=== PATIENT | female | born 1935 | race African-American/Black ===

== ENCOUNTER → 2016-05-30 | Outpatient (CLI) | payer MEDICARE, BC ==
--- NOTE | ~2016-05-30 | TH ---
Unit #: [id number] #: [id number] Patient: DOUGLAS CEDILLO [id number] [address] [place], [place] [address] [id number] O MR#: [id number] NAME: DOUGLAS CEDILLO : 1935 SEX: F STUDY DATE/TIME: 05/30/2016 UNIT: [facility] ROOM: STUDY DESCRIPTION: Attending Physician: Bharat Contreras M.D. Referring Physician: Bharat Contreras M.D. Primary Care Physician: Becki Wade M.D. CARDIOLOGY REPORT EXAM Lexiscan Cardiolite stress test, nuclear portion. PROCEDURE Using technetium 99m labeled Cardiolite, rest and stress SPECT images were obtained. Multiple SPECT images were obtained in various views including horizontal and vertical long axis and short axis views of the left ventricle. Images were obtained by gated SPECT method. The patient was administered 11.15 mCi of Cardiolite at rest. The patient was administered 34.3 mCi of Cardiolite after Lexiscan infusion was completed. On the stress images, there is a small area of mild decreased isotope activity inferiorly. The rest images also show a small area of mild decreased isotope activity inferiorly, worse on the rest images. Comparing rest and stress images, there is no stress-induced ischemia noted. The small area of predominantly fixed defect seen inferiorly is most likely due to soft tissue artifact. The left ventricular ejection fraction is calculated to be 72%. There is no focal wall motion abnormality seen. The technical quality of the images was poor because of patient's body habitus. CONCLUSION 1. No obvious stress-induced ischemia noted. 2. There is a small area of predominantly fixed defect seen inferiorly, most likely due to soft tissue artifact. 3. The left ventricular ejection fraction is calculated to be 72%. 4. There is no focal wall motion abnormality seen. 5. Normal Lexiscan Cardiolite stress test. 6. Technically limited study due to patient's body habitus. Clinical correlation is requested. Dictated by... Radha Mcadams TD: 05/30/2016 16:19 JOB #: [id number] Unit #: [id number] #: [id number] Patient: NGUYENDOUGLAS CARDIOLOGY REPORT X Emy Srinivasan MD <ELECTRONICALLY SIGNED> 10/19/16 1428 CARDIOLOGY REPORT
--- NOTE | ~2016-05-30 | TH ---
Unit #: [id number] #: [id number] Patient: DOUGLAS CEDILLO [id number] [facility]. [place], [place] [address] [id number] O MR#: [id number] NAME: DOUGLAS CEDILLO : 1935 SEX: F STUDY DATE/TIME: 05/30/2016 UNIT: [facility] ROOM: STUDY DESCRIPTION: Lexiscan Cardiolite stress Attending Physician: Bharat Contreras M.D. Referring Physician: Bharat Contreras M.D. Primary Care Physician: Becki Wade M.D. CARDIOLOGY REPORT EXAM Lexiscan Cardiolite stress test. FINDINGS Baseline EKG: Normal sinus rhythm with ventricular rate 77 beats per minute. Q waves noted in inferior leads and in V1, poor R wave progression, mild left atrial abnormality. Lexiscan is a 4-minute test with Lexiscan being injected within the first minute followed by Cardiolite. EKG during the test was equivocal to baseline. No acute ischemic changes. Patient had no complaints of chest pain, palpitations, or dizziness. Had increased shortness of breath and fatigue, which resolved in recovery phase. Maximum heart rate response was 103 beats per minute with a maximum blood pressure response 150/72 mmHg. Cardiolite was injected after Lexiscan within the first minute of the test. Radionuclide test pending. Please correlate with nuclear images. IMPRESSION 1. Functional class 3 with a workload of 7 METs. 2. Patient walked for six minutes, achieving 96% of maximum target heart rate at 176 beats per minute with a maximum blood pressure response of 150/80 mmHg. 3. EKG during the test was equivocal to baseline. No acute ischemic changes. 4. Patient had no complaints of chest pain, palpitations, or dizziness. Had increased shortness of breath and lower extremity fatigue, which resolved in recovery phase. 5. Patient had a fairly poor exercise tolerance and her heart rate increased fairly quickly to the 140s within 2 minutes of the stress portion. 6. Cardiolite was injected at maximum target heart rate. Radionuclide test pending. Please correlate with nuclear images. Dictated by... Bhargavi Edge A.P.R.N. for Emy Srinivasan M.D. Unit #: [id number] #: [id number] Patient: DOUGLAS CEDILLO Richie TD: 05/30/2016 10:01 JOB #: [id number] CARDIOLOGY REPORT X Bhargavi Edge APRN CARDIOLOGY REPORT
== END | disposition home or self-care (01) ==
LOC: CNUC 06:10
DX: R94.31 Abnormal electrocardiogram [ECG] [EKG] (principal); R06.00 Dyspnea, unspecified; E11.9 Type 2 diabetes mellitus without complications
CPT/HCPCS: 78452; 93017; A9500; J2785

== ENCOUNTER → 2016-10-16 | Outpatient (CLI) | payer MEDICARE, BC ==
[2016-10-16 11:31] LABS: BUN/CREATININE RATIO 10.71; CALCIUM SERUM 9.2 mg/dL (8.4-10.2); CREATININE SERUM 1.4 mg/dL (0.6-1.4); POTASSIUM 5.2 mmol/L (3.5-5.1)
== END | disposition home or self-care (01) ==
LOC: CLAB 09:58
PROVIDERS: Internal Medicine
DX: E87.0 Hyperosmolality and hypernatremia (principal)
CPT/HCPCS: 36415; 80048